=== PATIENT | male | born 1955 | race Caucasian/White ===

== ENCOUNTER → 2016-12-08 | Outpatient (CLI) | payer BC ==
[~2016-12-08] MED LIST: ASPEC325 PO; CLOP1TAB15 PO; METO50TA16 PO; SIMV80TA2 PO
[2016-12-08 09:45] LABS: ALT/SGPT 30 U/L (12-78); AST/SGOT 19 U/L (15-37); CHOLESTEROL 116 mg/dl (0-200); CHOLESTEROL/HDL RATIO 1.9; HDL CHOLESTEROL 60 mg/dl; TRIGLYCERIDES 49 mg/dl (0-150); VERY LOW DENSITY LIPOPROT CALC 10 mg/dl
== END | disposition home or self-care (01) ==
LOC: C.LAB1850 07:24
PROVIDERS: ATTEND Internal Medicine
DX: I25.10 Atherosclerotic heart disease of native coronary artery without angina pectoris (principal)

== ENCOUNTER → 2017-04-19 | Outpatient (CLI) | payer BC ==
[2017-04-19 18:49] LABS: ALT/SGPT 26 U/L (12-78); BLOOD UREA NITROGEN 14 mg/dl (7-18); BUN/CREATININE RATIO 15.8 (10-20); CALCIUM 8.2 mg/dl (8.5-10.1); CARBON DIOXIDE 28 mmol/L (21-32); CHLORIDE 98 mmol/L (98-107); GLUCOSE 94 mg/dl (70-99); POTASSIUM 4.1 mmol/L (3.5-5.1); SODIUM 134 mmol/L (136-145)
== END | disposition home or self-care (01) ==
LOC: C.LABMFLN 12:28
PROVIDERS: ATTEND Family Medicine
DX: R06.01 Orthopnea (principal); I25.10 Atherosclerotic heart disease of native coronary artery without angina pectoris

== ENCOUNTER → 2017-12-31 | Outpatient (CLI) | payer BC ==
[2017-12-31 12:28] LABS: HEMATOCRIT 41.6 % (42-52); HEMOGLOBIN 14.5 g/dL (14.0-18.0); MEAN CELL VOLUME 88.1 fL (80-100); MEAN CORPUSCULAR HEMOGLOBIN 30.7 pg (25-34); MEAN CORPUSCULAR HGB CONC 34.9 g/dl (32-36); MEAN PLATELET VOLUME 9.8 fL (7.4-10.4); PLATELET COUNT 268 K/uL (130-400); RED CELL DISTRIBUTION WIDTH SD 41.9 fL (36.4-46.3); WHITE BLOOD COUNT 10.08 K/uL (4.8-10.8)
[2017-12-31 13:10] LABS: ALT/SGPT 31 U/L (12-78); AST/SGOT 19 U/L (15-37); BLOOD UREA NITROGEN 16 mg/dl (7-18); CALCIUM 8.6 mg/dl (8.5-10.1); CARBON DIOXIDE 26 mmol/L (21-32); CREATININE 0.97 mg/dl (0.60-1.40); GLUCOSE 116 mg/dl (70-99); POTASSIUM 4.3 mmol/L (3.5-5.1); SODIUM 136 mmol/L (136-145)
== END | disposition home or self-care (01) ==
LOC: C.LABMFLN 08:46
PROVIDERS: ATTEND Internal Medicine Cardiovascular Disease
DX: I25.10 Atherosclerotic heart disease of native coronary artery without angina pectoris (principal); E78.5 Hyperlipidemia, unspecified; I35.0 Nonrheumatic aortic (valve) stenosis; I10 Essential (primary) hypertension

== ENCOUNTER 2024-05-03 10:35 | Observation (INO) ==
[2024-05-03 11:21] LABS: Basophils # (auto) 0.07 K/uL (0.00-0.20); Basophils % (auto) 1.2 %; Eosinophils # (auto) 0.24 K/uL (0.00-0.50); Eosinophils % (auto) 4.2 %; Hematocrit (blood only) 42.2 % (42.0-52.0); Hemoglobin 14.5 g/dl (14.0-18.0); Immature Granulocytes # (auto) 0.01 K/uL (0.01-0.20); Immature Granulocytes % (auto) 0.2 %; Lymphocytes # (auto) 1.64 K/uL (1.20-3.40); Lymphocytes % (auto) 28.5 %; Mean Corpuscular Hemoglobin 30.1 pg (25.0-34.0); Mean Corpuscular Hgb Conc 34.4 g/dL (32.0-36.0); Mean Corpuscular Volume 87.7 fL (80.0-100.0); Mean Platelet Volume 9.9 fL (9.4-12.4); Monocytes # (auto) 0.45 K/uL (0.11-0.59); Monocytes % (auto) 7.8 %; Neutrophils # (auto) 3.34 K/uL (1.40-6.50); Neutrophils % (auto) 58.1 %; Platelet Count 235 K/uL (130-400); RDW Coefficient of Variation 12.7 % (11.5-14.5); RDW Standard Deviation 41.1 fL (36.4-46.3); Red Blood Count 4.81 M/uL (4.70-6.10); White Blood Count 5.75 K/ul (4.8-10.8)
[2024-05-03 11:39] LABS: Albumin Globulin Ratio 1.8 (0.9-2); Albumin Level 4.4 gm/dl (3.4-5.0); BUN Creatinine Ratio 17.9 (10-20); Bilirubin,Total 0.5 mg/dl (0.2-1.0); Calcium 8.9 mg/dl (8.6-10.3); Creatinine Clr Calc Pharmacy 88.4 ml/min; Est GFR (African American) 103.5 ml/min; Est GFR (Non-African American) 89.3 ml/min; Globulin 2.5 gm/dl (2.5-4.0); Potassium 4.1 mmol/L (3.5-5.1); Total Protein 6.9 gm/dl (6.0-8.3)
[2024-05-03 11:45] LABS: Troponin I High Sensitivity 4.4 pg/ml (0-20)
--- NOTE | 2024-05-03 11:51 | XRay Report ---
XR chest 1V not portable CLINICAL HISTORY: Chest pain, nonspecific TECHNIQUE: Single frontal radiograph of the chest was obtained. Comparison: Comparison is made to chest radiograph 02/13/2022 FINDINGS: Median sternotomy wires are unchanged. Calcified aortic knob is seen. The lungs are clear. No evidenc e of pleural effusion or pneumothorax. IMPRESSION: No acute chest disease. ACT 112: Negative or not required by law. Electronically signed by: Adam Corona M.D. 05/03/2024 11:50 AM
[2024-05-03 11:53] LABS: INR 0.9 (0.9-1.1); Partial Thromboplastin Ratio 0.9; Partial Thromboplastin Time 23 Seconds (21-31); Prothrombin Time 9.7 Seconds (9.0-12.0)
--- NOTE | 2024-05-03 14:56 | Electrocardiogram Report ---
Test Reason : Blood Pressure : / mmHG Vent. Rate : 069 BPM Atrial Rate : 069 BPM P-R Int : 180 ms QRS Dur : 094 ms QT Int : 408 ms P-R-T Axes : 070 -74 -10 degrees QTc Int : 437 ms Normal sinus rhythm Left anterior fascicular block Abnormal ECG When compared with ECG of 14-MAY-2009 07:34, No significant change Confirmed by Ronnell Jauregui ([id number]) on 05/03/2024 2:56:33 PM Referred By: Confirmed By:Ronnell Jauregui
--- NOTE | 2024-05-03 15:30 | Emergency Department Note ---
Impression & Plan Chest pain ED Provider Note Diagnosis: Chest pain Disposition: Admit CHIEF COMPLAINT: HPI: Patient is a 68-year-old male presenting with complaint of chest pain. Patient states history of cardiac stents 12 to 14 years prior as well as aortic valve replacement 2 years prior. Patient states that he developed chest pain left anterior chest wall that was associated with diaphoresis blurred vision and weakness. Patient states that he has a dull sharp pain still present 2 out of 10 at that location. Patient states this feels similar to when he needed a cardiac stent previously. PAST MEDICAL HISTORY: See Below PAST SURGICAL HISTORY: See Below SOCIAL HISTORY: See Below HOME MEDICATIONS: See Below ALLERGIES: See Below VITALS: See Below PHYSICAL EXAMINATION: GENERAL: Well appearing, well nourished, NAD, non-toxic. EYE EXAM: Normal conjunctiva. OROPHARYNX: Moist mucus membranes. Grossly normal dentition. NECK: Supple, LUNGS: Clear to auscultation. Normal chest wall mechanics. HEART: NSR ABDOMEN: Abdomen soft, non-tender, normo-active bowel sounds, no masses, no rebound or guarding BACK: No CVA TTP. SKIN: No rashes and no bruising. UPPER EXTREMITIES: Upper extremities are grossly normal LOWER EXTREMITIES: Grossly normal, no edema. NEURO EXAM: A&O x3,, normal speech, moves all 4 extremities PSYCH: Cooperative MEDICAL DECISION MAKING: Reviewed external documents: History obtained from: Patient ER Course: Patient is a 68-year-old male presenting with complaint of chest pain. Patient's pain left anterior chest wall associated symptoms of diaphoresis blurred vision. Patient states this feels similar to when he had needed a cardiac stent previously. Patient states he still has mild 1-2 out of 10 sharp chest pain. Patient given aspirin. Patient's EKG without ischemic change. Patient's chest x-ray clear. Patient has elevated heart score above 4 due to risk factors and prior stenting. Patient be kept for observation with hospital service for chest pain rule out. Labs (independently interpreted) are significant for: First troponin negative Imaging results (independently interpreted): Chest x-ray clear EKG interpretation (independently interpreted): Normal sinus rhythm no ST segment elevation or depression Medications given: Aspirin Consultants: Hospitalist Medical decision rules: Chronic conditions affecting care: Triage Nursing notes reviewed and agree them. Vital Signs: reviewed and remarkable for: no significant abnormalities Past Med/Surg History Problem List (Updated 05/03/24 @ 18:06 by Jann Leos DO) Chest pain (Acute) Chest pain Dyspnea on exertion S/P aortic valve replacement with bioprosthetic valve Follow-up visit for aortic valve replacement with bioprosthetic valve Pulmonary nodule less than 1 cm in diameter with moderate to high risk for malignant neoplasm Severe aortic stenosis Ulnar neuropathy of both upper extremities Carpal tunnel syndrome, bilateral upper limbs S/P coronary artery stent placement stent 2009 placed [facility] Dr Francois Aortic stenosis (Acute) CAD in [place] artery (Acute) Carotid bruit (Acute) Chronic obstructive pulmonary disease (Acute) Dyslipidemia (Acute) Benign essential hypertension (Acute) Impaired fasting blood sugar (Acute) Medical History Aortic stenosis Benign essential hypertension CAD in [place] artery Carotid bruit Chronic obstructive pulmonary disease Dyslipidemia Impaired fasting blood sugar Surgical History H/O cardiac catheterization S/P coronary artery stent placement Family History Mother Alzheimer disease Heart disease Hypertension Father Cancer Heart disease Sister Heart disease Crohn's disease Brother Heart disease Grandfather (Paternal) Stroke Denies family history of Rheumatoid arthritis Sudden SIDS (sudden syndrome) Ovarian cancer Prostate cancer Diabetes Deep vein thrombosis Osteoporosis Coronary heart disease Dyslipidemia Cerebral aneurysm Bipolar disorder Clotting disorder Dementia Depression Kidney disease Myocardial infarction Osteoarthritis Breast cancer Schizophrenia Congenital kidney disease Gestational diabetes Lung cancer COPD (chronic obstructive pulmonary disease) Colorectal cancer Pulmonary embolism Lung disease Ulcerative colitis Colonic polyp Asthma Cystic kidney disease Social History Smoking Status: Current every day smoker Tobacco Type: Cigarettes Second Hand Exposure: No; Do You Dip or Chew Tobacco: No; Hx Alcohol Use: No Hx Substance Use: No Preferred Language: Uzbek Communication Ability: Effective Visual Impairment: No Limitations Hearing Ability: Normal Computer Forensic Specialist Required: No Beliefs That Will Affect Care: None marital status: Current Living Situation: Family current occupational status: employed 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, CONSTRUCTION Other Information That Helps Us Care for You: No Feels Safe at Home: Yes Safety Concerns: Feels Safe At This Time caffeine: Yes during the past year weight has: remained stable Dental Care, Regularly: No Physical Activity Frequency: Daily Physical Activity Frequency Comment: VERY ACTIVE Seatbelt Use: always Sunscreen Use: Yes Do you think of yourself as: straight/heterosexual Allergies Allergies Allergy/AdvReac Type Severity Reaction Status Date / Time No Known Allergies Allergy NONE Verified 05/03/24 15:50 Home Meds Home Medications Medication Instructions Recorded Confirmed acetaminophen 500 mg tablet 1,000 mg PO DIRECTED PRN Pain 01/07/22 05/03/24 (Tylenol Extra Strength) aspirin 81 mg tablet,delayed 81 mg PO QDD 05/03/24 05/03/24 release atorvastatin 80 mg tablet 80 mg PO QDD 05/03/24 05/03/24 clopidogrel 75 mg tablet 75 mg PO QDD 05/03/24 05/03/24 ezetimibe 10 mg tablet (Zetia) 10 mg PO QDD 05/03/24 05/03/24 fluticasone 250 mcg-salmeterol 50 1 inh inhalation BID 05/03/24 05/03/24 mcg/dose blistr powdr for inhalation (Advair Diskus) lisinopril 20 mg tablet 20 mg PO QDD 05/03/24 05/03/24 multivit with min-folic 1 tab PO QDD 05/03/24 05/03/24 acid-lutein 400 mcg-250 mcg chewable tablet (Centrum Silver) pyridoxine (vitamin B6) 100 mg 100 mg PO QDD 05/03/24 05/03/24 tablet Previous Rx's Medication Instructions Recorded nitroglycerin 0.4 mg sublingual 0.4 mg sublingual Q5M PRN chest 10/31/21 tablet pain #25 tabs albuterol sulfate 90 mcg/actuation 2 inh inhalation Q6H PRN shortness 04/23/22 breath activated powder inhaler of breath #1 ea Results & Data (ED) Vital Signs Vital Signs - 24 hr 05/03/24 10:46 05/03/24 15:45 05/03/24 15:47 Temperature 36.6 C Temperature Source Oral Pulse Rate 70 70 Pulse Rate [Apical] 60 Pulse Rhythm Regular Pulse Rhythm [Apical] Regular Respiratory Rate 18 18 18 Respiratory Effort / Characteristics Non-Labored Non-Labored Respiratory Depth Normal Normal Respiratory Pattern Regular Regular Blood Pressure 163/87 H Blood Pressure [Right Arm] 164/107 H Blood Pressure Mean 112 Blood Pressure Mean [Right Arm] 126 Pulse Oximetry 96 99 99 Oxygen Delivery Method Room Air Room Air Room Air Sepsis Recent Fever Within 48 Hours No Sepsis New/Unexplained Change in Mental Status N/A Sepsis Action Taken by Nursing No Action Required Laboratory Data 05/03/24 11:04 05/03/24 11:04 Lab Results 05/03/24 Range/Units 11:04 WBC 5.75 (4.8-10.8) K/ul RBC 4.81 (4.70-6.10) M/uL Hgb 14.5 (14.0-18.0) g/dl Hct 42.2 (42.0-52.0) % MCV 87.7 (80.0-100.0) fL MCH 30.1 (25.0-34.0) pg MCHC 34.4 (32.0-36.0) g/dL RDW Std Deviation 41.1 (36.4-46.3) fL RDW Coeff of Nadia 12.7 (11.5-14.5) % Plt Count 235 (130-400) K/uL MPV 9.9 (9.4-12.4) fL Immature Gran % (Auto) 0.2 % Neut % (Auto) 58.1 % Lymph % (Auto) 28.5 % [place] % (Auto) 7.8 % Eos % (Auto) 4.2 % Baso % (Auto) 1.2 % Neut # (Auto) 3.34 (1.40-6.50) K/uL Lymph # (Auto) 1.64 (1.20-3.40) K/uL [place] # (Auto) 0.45 (0.11-0.59) K/uL Eos # (Auto) 0.24 (0.00-0.50) K/uL Baso # (Auto) 0.07 (0.00-0.20) K/uL Immature Gran # (Auto) 0.01 (0.01-0.20) K/uL PT 9.7 (9.0-12.0) Seconds INR 0.9 (0.9-1.1) APTT 23 (21-31) Seconds PTT Ratio 0.9 Sodium 138 (136-145) mmol/L Potassium 4.1 (3.5-5.1) mmol/L Chloride 106 (98-107) mmol/L Carbon Dioxide 28 (21-32) mmol/L Anion Gap 4 (3-11) BUN 15 (6-23) mg/dl Creatinine 0.84 (0.6-1.4) mg/dl Est Cr Clr Drug Dosing 88.4 ml/min Est GFR ( Amer) 103.5 ml/min Est GFR (Non-Af Amer) 89.3 ml/min BUN/Creatinine Ratio 17.9 (10-20) Glucose 98 (70-99(Fasting)) mg/dl Calcium 8.9 (8.6-10.3) mg/dl Total Bilirubin 0.5 (0.2-1.0) mg/dl AST 28 (13-39) U/L ALT 27 (7-52) U/L Alkaline Phosphatase 81 (34-104) U/L Troponin I High Sens 4.4 (0-20) pg/ml Total Protein 6.9 (6.0-8.3) gm/dl Albumin 4.4 (3.4-5.0) gm/dl Globulin 2.5 (2.5-4.0) gm/dl Albumin/Globulin Ratio 1.8 (0.9-2) Administered Medications Discontinued Medications Aspirin (Aspirin 81 Mg Chew) 324 mg PO NOW STA Stop: 05/03/24 15:29 Last Admin: 05/03/24 15:35 Dose: 324 mg Documented By: MILAN Famotidine (Famotidine 20 Mg Tab) 20 mg PO NOW ONE Stop: 05/03/24 16:07 Last Admin: 05/03/24 16:49 Dose: 20 mg Documented By: SUKUMAR Imaging Data Radiologist's Impression: Chest X-Ray 05/03/24 10:50 XR chest 1V not portable CLINICAL HISTORY: Chest pain, nonspecific TECHNIQUE: Single frontal radiograph of the chest was obtained. Comparison: Comparison is made to chest radiograph 02/13/2022 FINDINGS: Median sternotomy wires are unchanged. Calcified aortic knob is seen. The lungs are clear. No evidence of pleural effusion or pneumothorax. IMPRESSION: No acute chest disease. ACT 112: Negative or not required by law. Electronically signed by: Adam Corona M.D. 05/03/2024 11:50 AM Discharge Plan Visit Data Chief Complaint: Chest Pain Stated Complaint: BLURRED VISION, CHEST PAIN, WEAKNESS ED Provider: Jann Leos Discharge Problem: Chest pain Patient Disposition: Admitted As Inpatient Discharge Instructions Interventions: ED Discharge Assessment Last Done: 05/03/24 16:56
[2024-05-03] MEDS: ASPIRIN 81 MG CHEW PO STA (15:35)
--- NOTE | 2024-05-03 15:52 | History & Physical Report ---
Date of Service May 03, 2024 Assessment & Plan (1) Chest pain: Plan: Admit to med telemetry Currently stable, asymptomatic, and nontoxic-appearing Presented to the [facility] ED today after experiencing approximately 45 minutes of left lower chest/epigastric pain radiating to the left chest, exacerbated with deep inspiration, and associated with nausea, diaphoresis, and weakness Symptoms have not returned since arrival to the ED Patient confirms the symptoms were very similar to symptoms he experienced prior to needing JOSE C to the L[place] [address] Francois Cardiac workup thus far including EKG into high sensitivity troponin levels have been unremarkable Pain is not reproducible on palpation Patient was given 324 mg aspirin in the ED Chest x-ray was negative for acute findings We will obtain a D-dimer level due to his pain being exacerbated with deep inspiration, if elevated will obtain CT of the chest with con to monitor for PE Continue to monitor on telemetry, will continue to monitor high-sensitivity troponin levels every 6 hours overnight Will continue home aspirin, Plavix, statin Cardiology consult has been placed, we will make him n.p.o. at midnight in case of heart cath tomorrow Will give 20 mg p.o. famotidine now to see if this improves symptoms SQ Lovenox for DVT prophylaxis Heart healthy diet until midnight then n.p.o. AM CBC, CMP, mag, PT/INR (2) S/P coronary artery stent placement: Plan: Continue aspirin, Plavix, and statin (3) Chronic obstructive pulmonary disease: Plan: Currently stable on room air and in no respiratory distress Start incentive spirometry We will try to avoid use of albuterol for now in case his symptoms are cardiac in nature as this could exacerbate his condition As needed O2 to keep SpO2 between 89 and 92% As needed nicotine gum has been ordered (4) Benign essential hypertension: Plan: Currently stable Continue home lisinopril Plan The patient was seen with and discussed with Dr. Miguel at the time of the admission History of Present Illness Chief Complaint: Chest pain/epigastric pain, diaphoresis, weakness Primary Care Provider: DONTE PCP Johny is a 68-year-old male with a past medical history significant for coronary artery disease status post PCI with JOSE C placement to the mid LAD in 2008, severe aortic stenosis status post bioprosthetic aortic valve placement at [facility] in 2021, COPD, dyspnea on exertion, and GERD who presented to the [facility] ED on 05/03/2024 after experiencing acute onset of epigastric/lower left-sided chest pain, weakness, blurred/tunnel vision, and shortness of breath which started approximately 30 minutes prior to his arrival to the ED. He was noted to be hypertensive in the ED at 163/87 but otherwise stable. Labs including CBC, CMP, INR, and 2 high-sensitivity troponin levels were unremarkable. EKG showed normal sinus rhythm with known left anterior fascicular block without acute ST segment or T wave changes. Chest x- ray was read as negative for acute findings. The patient was given 324 mg aspirin in the ED. Patient was sitting in bed in no acute distress at the time of the exam. States he had been in his normal state of health and feeling well. He was sitting at his desk earlier this afternoon doing paperwork when he had acute onset of epigastric/lower left chest pain with radiation down the left ribs. He had associated nausea, diaphoresis, weakness/lightheadedness during this time which lasted approximately 45 minutes. He did not take any medications after symptoms started as he did not have his nitroglycerin with him. When asked, he confirms that the symptoms are similar to when he required JOSE C placement 2008. Denies recurrent symptoms since arrival to the ED. Does note that when he was experiencing the pain it was exacerbated with deep inspiration. Denies recent fever, chills, shortness of breath, cough, hemoptysis, vomiting, diarrhea, melena, bloody bowel movements, lower extremity swelling, recent long travel, recent surgery or lower extremity trauma. He confirms he is still taking all cardiac medications including aspirin, Plavix, statin, and lisinopril as prescribed. Confirms he is no longer smoking and uses alcohol sparingly during social situations. We discussed CODE STATUS, he has a living will and power of deputy commonwealth's attorney, he is a DNR/DNI and his daughter is his POA. Please refer to Dr. Miguel's attestation for any changes to the treatment plan Allergies Allergy/AdvReac Type Severity Reaction Status Date / Time No Known Allergies Allergy NONE Verified 05/03/24 15:50 Home Medications Medication Instructions Recorded Confirmed Type nitroglycerin 0.4 mg sublingual 0.4 mg sublingual Q5M PRN chest 10/31/21 05/03/24 Rx tablet pain #25 tabs acetaminophen 500 mg tablet 1,000 mg PO DIRECTED PRN Pain 01/07/22 05/03/24 History (Tylenol Extra Strength) albuterol sulfate 90 mcg/actuation 2 inh inhalation Q6H PRN shortness 04/23/22 05/03/24 Rx breath activated powder inhaler of breath #1 ea aspirin 81 mg tablet,delayed 81 mg PO QDD 05/03/24 05/03/24 History release atorvastatin 80 mg tablet 80 mg PO QDD 05/03/24 05/03/24 History clopidogrel 75 mg tablet 75 mg PO QDD 05/03/24 05/03/24 History ezetimibe 10 mg tablet (Zetia) 10 mg PO QDD 05/03/24 05/03/24 History fluticasone 250 mcg-salmeterol 50 1 inh inhalation BID 05/03/24 05/03/24 History mcg/dose blistr powdr for inhalation (Advair Diskus) lisinopril 20 mg tablet 20 mg PO QDD 05/03/24 05/03/24 History multivit with min-folic 1 tab PO QDD 05/03/24 05/03/24 History acid-lutein 400 mcg-250 mcg chewable tablet (Centrum Silver) pyridoxine (vitamin B6) 100 mg 100 mg PO QDD 05/03/24 05/03/24 History tablet Past Med/Surg History Problem List (Updated 05/03/24 @ 16:16 by Jann Montgomery PA-C) Chest pain Dyspnea on exertion S/P aortic valve replacement with bioprosthetic valve Follow-up visit for aortic valve replacement with bioprosthetic valve Pulmonary nodule less than 1 cm in diameter with moderate to high risk for malignant neoplasm Severe aortic stenosis Ulnar neuropathy of both upper extremities Carpal tunnel syndrome, bilateral upper limbs S/P coronary artery stent placement stent 2009 placed [facility] Dr Francois Aortic stenosis (Acute) CAD in [place] artery (Acute) Carotid bruit (Acute) Chronic obstructive pulmonary disease (Acute) Dyslipidemia (Acute) Benign essential hypertension (Acute) Impaired fasting blood sugar (Acute) Medical History Aortic stenosis Benign essential hypertension CAD in [place] artery Carotid bruit Chronic obstructive pulmonary disease Dyslipidemia Impaired fasting blood sugar Surgical History H/O cardiac catheterization S/P coronary artery stent placement Family History Mother Alzheimer disease Heart disease Hypertension Father Cancer Heart disease Sister Heart disease Crohn's disease Brother Heart disease Grandfather (Paternal) Stroke Denies family history of Rheumatoid arthritis Sudden SIDS (sudden syndrome) Ovarian cancer Prostate cancer Diabetes Deep vein thrombosis Osteoporosis Coronary heart disease Dyslipidemia Cerebral aneurysm Bipolar disorder Clotting disorder Dementia Depression Kidney disease Myocardial infarction Osteoarthritis Breast cancer Schizophrenia Congenital kidney disease Gestational diabetes Lung cancer COPD (chronic obstructive pulmonary disease) Colorectal cancer Pulmonary embolism Lung disease Ulcerative colitis Colonic polyp Asthma Cystic kidney disease Social History Smoking Status: Never smoker Second Hand Exposure: No; Do You Dip or Chew Tobacco: No; Hx Alcohol Use: Yes Alcohol type: hard liquor Alcohol Intake Frequency Comment: WEEKENDS Hx Substance Use: No Preferred Language: Brazilian Visual Impairment: No Limitations Hearing Ability: Normal Welding Machine Operator Gas Metal Arc Required: No Beliefs That Will Affect Care: None marital status: Current Living Situation: Spouse current occupational status: employed 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, CONSTRUCTION Feels Safe at Home: Yes caffeine: Yes during the past year weight has: remained stable Dental Care, Regularly: No Physical Activity Frequency: Daily Physical Activity Frequency Comment: VERY ACTIVE Seatbelt Use: always Sunscreen Use: Yes Do you think of yourself as: straight/heterosexual Physical Exam Physical Exam: Physical Exam: General: In no acute distress, stated age, well-nourished, good hygiene HEENT: Normocephalic, atraumatic, no scleral icterus, pupils around round, symmetrical, and reactive to light, moist mucus membranes, trachea midline, no thyromegaly Chest/Pulm: No respiratory distress, symmetrical chest expansion, scattered expiratory wheezing Cardiac: RRR, click noted from previous aortic valve replacement Abdomen: Negative for ascites and bruising, normoactive bowel sounds, soft, non-tender to palpation throughout Musculoskeletal: Symmetrical and without signs of acute trauma, upper and lower extremities with full ROM, no atrophy, spasticity, or flaccidity Extremities: Radial, dorsalis pedis, and posterior tibial pulses are intact and symmetrical, no edema noted in the BL LE's Skin: Warm, dry, no rashes , lesions, or scars noted Neuro: Alert and oriented to person, place, month, year, and president, no focal defects, no tremors noted Psych: No acute distress, calm and cooperative during the exam Results & Data Results & Data Vital Signs (Past 12 Hours) Vital Signs Temp Pulse Pulse Resp BP BP Pulse Ox 05/03/24 15:47 70 18 99 05/03/24 15:45 60 18 164/107 H 99 05/03/24 10:46 36.6 C 70 18 163/87 H 96 O2 Del Method 05/03/24 15:47 Room Air 05/03/24 15:45 Room Air 05/03/24 10:46 Room Air Laboratory Results Laboratory Results - last 24 hr 05/03/24 05/03/24 11:04 Unknown WBC 5.75 RBC 4.81 Hgb 14.5 Hct 42.2 MCV 87.7 MCH 30.1 MCHC 34.4 RDW Std Deviation 41.1 RDW Coeff of Nadia 12.7 Plt Count 235 MPV 9.9 Immature Gran % (Auto) 0.2 Neut % (Auto) 58.1 Lymph % (Auto) 28.5 [place] % (Auto) 7.8 Eos % (Auto) 4.2 Baso % (Auto) 1.2 Neut # (Auto) 3.34 Lymph # (Auto) 1.64 [place] # (Auto) 0.45 Eos # (Auto) 0.24 Baso # (Auto) 0.07 Immature Gran # (Auto) 0.01 PT 9.7 INR 0.9 APTT 23 PTT Ratio 0.9 Sodium 138 Potassium 4.1 Chloride 106 Carbon Dioxide 28 Anion Gap 4 BUN 15 Creatinine 0.84 Est Cr Clr Drug Dosing 88.4 Est GFR ( Amer) 103.5 Est GFR (Non-Af Amer) 89.3 BUN/Creatinine Ratio 17.9 Glucose 98 Calcium 8.9 Total Bilirubin 0.5 AST 28 ALT 27 Alkaline Phosphatase 81 Troponin I High Sens 4.4 4.5 Total Protein 6.9 Albumin 4.4 Globulin 2.5 Albumin/Globulin Ratio 1.8 Diagnostic Findings Chest X-Ray 05/03/24 10:50 XR chest 1V not portable CLINICAL HISTORY: Chest pain, nonspecific TECHNIQUE: Single frontal radiograph of the chest was obtained. Comparison: Comparison is made to chest radiograph 02/13/2022 FINDINGS: Median sternotomy wires are unchanged. Calcified aortic knob is seen. The lungs are clear. No evidence of pleural effusion or pneumothorax. IMPRESSION: No acute chest disease. ACT 112: Negative or not required by law. Electronically signed by: Adam Corona M.D. 05/03/2024 11:50 AM ECG Additional Comments: Normal sinus rhythm Left anterior fascicular block Abnormal ECG When compared with ECG of 14-MAY-2009 07:34, No significant change Confirmed by Ronnell Jauregui ([id number]) on 05/03/2024 2:56:33 PM Code Status & VTE Plan Code Status DNR/DNI VTE Prophylaxis Plan VTE Prophylaxis will be ordered: Yes Supervising Physician Co-Signing Physician Notes Patient was seen and examined, agree with above assessment and plan Patient with bioprosthetic valve replacement in 2021, CAD, h/o stents on ASA, Plavix presents with acute onset chest pain, no EKG changes, negative trop vital are stable head atraumatic neck supple chest CTA b/l heart S1S2 regular abdomen soft, nt, nd, BS present extremities no clubbing, no cyanosis will monitor on tele consult cardiology NPO after midnight for possible stress test PG Care Time/CCT Total # of Minutes Spent Total Time Spent with Patient: Total time spent is greater than 50% in coordination of care (as documented) at patient's floor/unit and/or counseling patient: Coding [place] [address] INT INP/OBS CARE 2/55MIN Patient Type Established Medical Decision Making Moderate Complexity Diagnoses Chest pain R07.9 S/P coronary artery stent placement Z95.5 Chronic obstructive pulmonary disease J44.9 Benign essential hypertension I10
[2024-05-03] MEDS ORDERED: ACETAMINOPHEN 325 MG TAB PO PRN (16:09)
[2024-05-03] MEDS ORDERED: NICOTINE POLACRILEX 2 MG GUM MT PRN (16:16)
[2024-05-03] MEDS: FAMOTIDINE 20 MG TAB PO ONE (16:49)
[2024-05-03 17:48] LABS: D Dimer 670 ug/L FEU (0-500)
[2024-05-03] MEDS: OPTIRAY 320 125ml IV ONE (18:17)
[2024-05-03] MEDS: ATORVASTATIN 40 MG TAB PO SCH (18:32)
[2024-05-03] MEDS: EZETIMIBE 10 MG TAB PO SCH (18:32)
[2024-05-03] MEDS: CLOPIDOGREL BISULFATE 75 MG TAB PO SCH (18:32)
[2024-05-03] MEDS: ASPIRIN 81 MG ECTAB PO SCH (18:32)
--- NOTE | 2024-05-03 18:32 | CT Scan Report ---
CT ANGIOGRAM OF THE CHEST CLINICAL HISTORY: Atypical chest pain COMPARISON STUDY: Chest x-ray dated 05/03/2024. Chest CT dated 05/06/2009. TECHNIQUE: Following the IV administration of 118 cc of Optiray 320, CT angiogram of the chest was pe rformed from the upper abdomen to the thoracic inlet utilizing the pulmonary embolus protocol. Images are reviewed in the axial, sagittal, and coronal planes. 3-D MIPS images are created and assessed. I V contrast was administered without complication. A dose lowering technique was utilized adhering to the principles of ALARA. CT DOSE: 984.23 mGy.cm FINDINGS: Thyroid: Imaged portions of the thyroid gland are normal in size and attenuation. Thoracic aorta: There is atherosclerotic calcification of the thoracic aorta, which is normal in lauro jason and demonstrates standard 3-vessel arch anatomy. No dissection is seen. Pulmonary vasculature: The pulmonary trunk is normal in caliber. There are no filling defects identif ied in main, lobar, or segmental pulmonary branches to suggest pulmonary embolus. Heart: The patient is status post midline sternotomy and aortic valve surgery. Pericardial leads are noted. The heart is normal in size and without pericardial effusion. The coronary arteries are densel y calcified. Lungs and pleural spaces: Evaluation of the lung parenchyma is degraded by motion artifact. There is moderate emphysematous change. No airspace consolidation is seen typical for pneumonia and no pleural effusion is identified. Scarring/atelectasis is noted at the lung bases. The trachea and central air ways are clear. Calcified pleural plaque is seen in the right lower lung. This has progressed from pr evious. A 7 mm calcified nodule in the right lower lobe on image #83 has been present dating back to 2008, as has an 11 mm focus of pleural-based nodularity along left major fissure seen on image #117. These are of doubtful significance. There are numerous small calcified granulomas. Mediastinum: There are calcified mediastinal nodes. No lymphadenopathy is seen. Anitha: Clear. Axillae: There is no axillary lymphadenopathy. Upper abdomen: There is a small hiatal hernia. Partially visualized upper abdominal viscera is within normal limits. Skeletal structures: The skeletal structures are osteopenic. Arthritic change is noted in the shoulde rs. No lytic or blastic bony lesions are seen. IMPRESSION: 1. There is no evidence of pulmonary embolus in the main, lobar, or segmental pulmonary arteries. 2. Moderate emphysema. 3. There is no airspace consolidation typical for pneumonia or pleural effusion. 4. Calcified pleural plaque at the right lung base has progressed from 2008 and suggests asbestos-rel ated pleural disease. 5. Advanced coronary artery atherosclerosis. 6. Additional findings as above. ACT 112: Negative or not required by law. Electronically signed by: Carlos Manuel Johnson M.D. 05/03/2024 6:30 PM
--- OUTSIDE RECORDS SUMMARY | 2024-05-03 19:58 | External Medical Summary | Summary of Care ---
Author Name Unknown Organization [facility] Address [address] [place] [address] Phone [phone] Care Team Providers Care Brood Station Manager Name Role Phone Bart Schmid MD Primary Care Provider [phone] Reason for Visit * Reason Comments Cough Encounter Details Date Type Department Care Team (Latest Contact Info) Description 12/18/2023 6:10 PM EST [facility] [address] [place] [id number] Tashia Scott PA-C [address] [place] [address] Acute bronchitis, unspecified organism* Allergies No known active allergiesdocumented as of this encounter (statuses as of 12/18/2023) Medications Medication Sig Dispensed Refills Start Date End Date Status PLAVIX 75 MG PO TABS 1 TAB DAILY 0 Act [place] ASPIRIN EC 81 MG PO TBEC Take one pill daily 100 Tab 3 01/29/2011 Active GLUCOSAMINE CHONDROITIN COMPLX PO CAPS one daily 30 Cap 0 01/29/2011 Active CENTRUM SILVER PO TABS 1 TABLET DAILY 30 Tab 0 01/29/2011 Active SIMVASTATIN 80 MG PO TABS one tablet daily 0 Active PROAIR HFA 108 (90 BASE) MCG/ACT IN AERSIndications:Baldo paul, complicated Use two puffs every four hours as needed for wheezing 1 Inhaler 1 08/10/2013 Active ADVAIR DISKUS 250-50 MCG/DOSE inhaler Inhale 1 Puff by mouth in the morning and 1 Puff before bedtime. 5 04/19/2017 Active atorvaSTATin (LIPITOR) 80 MG Tablet 0 04/19/2017 Active naproxen (NAPROSYN) 500 MG Tablet Take 500 mg by mouth 2 times a day. With food. 1 09/06/2017 Active pyridOXINE (VITAMIN B-6) 100 MG Tablet Take 1 Tablet by mouth in the morning and 1 Tablet before bedtime. 2 09/12/2018 Active Baclofen 10 MG Oral Tablet (Lioresal) Take 1 Tablet by mouth 2 times a day as needed for Muscle spasms. 20 Tablet 0 08/05/2023 Active predniSONE 20 MG Oral Tablet (Deltasone) Take 2 Tablets by mouth in the morning for 5 days. 10 Tablet 0 12/18/2023 12/23/2023 Active documented as of this encounter (statuses as of 12/18/2023) Active Problems Problem Noted Date Diagnosed Date Dyslipidemia, goal LDL below 70 08/10/2013 Impaired fasting blood sugar 08/10/2013 Tobacco use disorder 01/29/2011 Coronary atherosclerosis of [place] coronary yeni ry 01/29/2011 Overview: Stent placed April 2009; sees [facility] banquet steward in [place] q. 6 months documented as of this encounter (statuses as of 12/18/2023) Immunizations Name Administration Dates Next Due Pneumococcal Polysaccharide PPV23 (Pneumovax) 12/12/2009(Deferred: Patient Refused) TD - Tetanus/Diptheria (ADULT) 09/04/2003 documented as of this encounter Social History Tobacco Use Types Packs/Day Years Used Date Smoking Tobacco: Every Day Cigarettes 1 40 Last attempted to quit: 04/23/2017 Cigars Smokeless Tobacco: Never Tobacco Cessation:Ready to Q uit: Not Asked; Counseling Given: Not Answered Comments:started @ 17 yo Alcohol Use Standard Drinks/Week Comments Yes 0 (1 standard drink = 0.6 oz pure alcohol) As of 2, the last noted alcohol intake was 6 ounces. 6 pack per week Sex and Gender Information Value Date Recorded Sex Assigned at Not on file Gender Identity Not on file Sexual Orientation Not on file Job Start Date Occupation Industry Not on file Not on file Not on file documented as of this encounter Last Filed Vital Signs Vital Sign Reading Time Taken Comments Blood Pressure 142/68 12/18/2023 4:22 PM EST Pulse 73 12/18/2023 4:22 PM EST Temperature 36.8 C (98.2 F) 12/18/2023 4:22 PM ES T Respiratory Rate 18 12/18/2023 4:22 PM EST Oxygen Saturation 96% 12/18/2023 4:22 PM EST Inhaled Oxygen Concentration - - Weight 89.3 kg (196 lb 12.8 oz) 12/18/2023 4:22 PM EST Height - - Body Mass Index 27.45 09/21/2023 12:46 PM EST documented in this encounter Patient Instructions * Patient Instructions* Tashia Scott PA-C - 12/18/2023 4:51 PM EST Acute Bronchitis What is acute bronchitis? Bronchitis is swelling and irritation in the air passages that connect the windpipe with the lungs.With acute bronchitis you usually have a cough that produces phlegm, and pain behind the breastbonewhen you breathe deeply or cough. How does it occur? Bronchitis often occurs with viral infections of the respiratory tract, such as colds and flu. Bronchitis may also be caused by bacterial infections. It may occur with childhood illnesses such as measles and whooping cough. Attacks are most frequent during the winter or when the level of air pollution is high. Infants, young children, the elderly, smokers, and people with lung or heart disease are most likely to get acute bronchitis. What are the symptoms? Symptoms may include: a deep cough that produces yellowish or greenish phlegm pain behind the breastbone when you breathe deeply or cough wheezing feeling short of breath fever chills headache sore muscles. How is it diagnosed? Your health care provider will examine you and ask about your symptoms. You may have tests, such as: a test of phlegm to look for bacteria chest x-ray blood tests. How is it treated? Acute bronchitis often does not require medical treatment. Resting at home and drinking plenty of fluids to keep the mucus loose may be all you need to do to get better in a few days. If your symptoms are severe or you have other health problems (such as heart or lung disease or diabetes), you may need to take antibiotics. How long will the effects last? Most of the time acute bronchitis clears up in a few days. Your cough may slowly get better in 1 to2 weeks. It may take you longer to recover if: You are a smoker. You live in an area where air pollution is a problem. You have a heart or lung disease. You have any other continuing health problems. How can I take care of myself? You can help yourself by: following the full treatment your health care provider recommends using a vaporizer, humidifier, or steam from hot water to add moisture to the air drinking plenty of liquids taking cough medicine if recommended by your health care provider resting in bed taking aspirin or acetaminophen to reduce fever and relieve headache and muscle pain (no one 18 years of age and under should take aspirin because of the risk of Adry's syndrome) eating healthy meals. Call your health care provider if: You have trouble breathing. You have a fever over 101F (38.3C). You cough up blood. You don't begin to feel better in 3 days. You have any symptoms that concern you. How can I help prevent acute bronchitis? To reduce your risk of getting a respiratory infection: Do not smoke. Wash your hands often. Get regular exercise. Eat healthy foods. Developed by [employer]. Published by [employer]. Last modified: 2004-06-03 Last reviewed: 2004-06-03 This content is reviewed periodically and is subject to change as new health information becomes available. The information is intended to inform and educate and is not a replacement for medical evaluation, advice, diagnosis or treatment by a healthcare professional. Women's Health Advisor 2005.2 Index Women's Health Advisor 2005.2 Credits Copyright 2005 [employer] and/or one of its subsidiaries. All Rights Reserved. documented in this encounter Progress Notes * Tashia Scott PA-C - 12/18/2023 4:48 PM EST Subjective: Johny Uriostegui is a 68 year old male. Chief Complaint Patient presents with Cough HPI: 68 yo male former smoker presents c/o rhinorrhea, congestion, sore throat, cough x 4 days. He states today he started to feel wheezy and slightly SOB. No fever, chills, body aches, h/a, cp, abd pain, n/v/d. He is taking mucinex OTC. He is using his albuterol which is helping. PMH: Patient Active Problem List Diagnosis Code Tobacco use disorder F17.200 Coronary atherosclerosis of chipewwa coronary artery I25.10 Dyslipidemia, goal LDL below 70 E78.5 Impaired fasting blood sugar R73.01 Current Outpatient Medications Medication Sig Dispense Refill PLAVIX 75 MG PO TABS 1 TAB DAILY ASPIRIN EC 81 MG PO TBEC Take one pill daily 100 Tab 3 GLUCOSAMINE CHONDROITIN COMPLX PO CAPS one daily 30 Cap 0 CENTRUM SILVER PO TABS 1 TABLET DAILY 30 Tab 0 SIMVASTATIN 80 MG PO TABS one tablet daily PROAIR HFA 108 (90 BASE) MCG/ACT IN AERS Use two puffs every four hours as needed for wheezing 1 Inhaler 1 ADVAIR DISKUS 250-50 MCG/DOSE inhaler Inhale 1 Puff by mouth in the morning and 1 Puff before bedtime. 5 atorvaSTATin (LIPITOR) 80 MG Tablet pyridOXINE (VITAMIN B-6) 100 MG Tablet Take 1 Tablet by mouth in the morning and 1 Tablet before bedtime. 2 Baclofen 10 MG Oral Tablet (Lioresal) Take 1 Tablet by mouth 2 times a day as needed for Muscle spasms. 20 Tablet 0 naproxen (NAPROSYN) 500 MG Tablet Take 500 mg by mouth 2 times a day. With food. (Patient not taking: Reported on 12/18/2023) 1 No current facility-administered medications for this visit. No past medical history on file. Past Surgical History: Procedure Laterality Date REMOVE TONSILS & ADENOIDS, UNDER 12 REPLANTATION OF DIGIT, COMPLETE 1975, 1980 Reimplantation of right thumb x 2 due to trauma Review of patient's allergies indicates: No Known Allergies Family History Problem Relation Age of Onset Heart Disorder Mother from MS at 68 Neurological Disorder Mother Alzhiemers Cancer Father Cancer of the tongue Heart Disorder Father CAD started late 40's -early 50's No Past Hx Sister 2 sisters A&W No Past Hx Brother 2 brothers A&W Family Status Relation Status Mo (Not Specified) Fa (Not Specified) Sis (Not Specified) Bro (Not Specified) Social History Socioeconomic History Marital status: Spouse name: Silvia Number of children: 2 Years of education: 18 Highest education level: Not on file Occupational History 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 6 pack per week Drug use: No Sexual activity: Yes Comment: is only sexual partner Other Topics Concern Not on file Social History Narrative 05/07/2005 Household: Lives w/ and 2 children (22, 17) Social Determinants of Health Financial Resource Strain: Not on file Food Insecurity: Not on file Transportation Needs: Not on file Physical Activity: Not on file Stress: Not on file Social Connections: Not on file Intimate Partner Violence: Not on file Housing Stability: Not on file Review of Systems All other systems reviewed and are negative. Objective: BP 142/68 | Pulse 73 | Temp 36.8 C (98.2 F) (Tympanic) | Resp 18 | Wt 89.3 kg (196 lb 12.8 oz) | SpO2 96% | BMI 27.45 kg/m | BSA 2.11 m Physical Exam Vitals and nursing note reviewed. Constitutional: General: He is not in acute distress. Appearance: Normal appearance. HENT: Head: Normocephalic and atraumatic. Right Ear: Tympanic membrane, ear canal and external ear normal. Left Ear: Tympanic membrane, ear canal and external ear normal. Nose: Congestion and rhinorrhea present. Mouth/Throat: Mouth: Mucous membranes are moist. Pharynx: Posterior oropharyngeal erythema present. No oropharyngeal exudate. Eyes: Extraocular Movements: Extraocular movements intact. Conjunctiva/sclera: Conjunctivae normal. Pupils: Pupils are equal, round, and reactive to light. Cardiovascular: Rate and Rhythm: Normal rate. Heart sounds: Normal heart sounds. No murmur heard. No friction rub. No gallop. Pulmonary: Effort: Pulmonary effort is normal. No respiratory distress. Breath sounds: No stridor. Wheezing present. No rhonchi or rales. Abdominal: General: Abdomen is flat. Bowel sounds are normal. Palpations: Abdomen is soft. There is no hepatomegaly, splenomegaly or mass. Tenderness: There is no abdominal tenderness. Musculoskeletal: Cervical back: Neck supple. Skin: General: Skin is warm and dry. Findings: No rash. Neurological: General: No focal deficit present. Mental Status: He is alert and oriented to person, place, and time. ASSESSMENT: Acute bronchitis, unspecified organism (Primary) Other orders - predniSONE 20 MG Oral Tablet (Deltasone); Take 2 Tablets by mouth in the morning for 5 days. Refer to pt handout for further instructions. Tashia Scott PA-C documented in this encounter Nursing Notes * Binta Montilla MED ASSIST - 12/18/2023 4:19 PM EST Johny Uriostegui is a 68 year old male who presents to walk-in clinic today complaining of Chief Complaint Patient presents with Cough Pt c/o cough x 4 days. Tried musinex. Denies any other sx. Alone in exam room. documented in this encounter Plan of Treatment Health Maintenance Due Date Last Done Comments DISCUSS TOBACCO CESSATION (REFER TO SMARTSET #4978) 1954 COVID-19 Vaccine (#1) 03/14/1955 Pneumococcal Vaccine: 65+ Years (1 - PCV) 1960 Depression Screening 1966 Hepatitis C Screening 1972 Cologuard 1999 Colonoscopy 1999 Colorectal Cancer Screening 1999 Fecal Occult Blood Test 1999 Sigmoidoscopy 1999 DTaP,Tdap,and Td Vaccines (1 - Tdap) 09/05/2003 09/04/2003 LUNG CANCER SCREENING - USE SMARTSET 95062 2004 Zoster Vaccines (1 of 2) 2004 Influenza Vaccine (FLU shot) (#1) 2023 Diabetes Screening 09/21/2026 09/21/2023, 0 05/02/2014, 03/20/2013, Additional history exists AAA Screening Completed 08/05/2023 GARDASIL-HPV IMMUNIZATION SERIES Aged Out No longer eligible based on patient's age to complete this topic Hepatitis B Aged Out No longer eligi ble based on patient's age to complete this topic MENINGOCOCCAL (MENACTRA/MENVEO) Aged Out No longer eligible based on patient's age to complete this topic documented as of this encounter Medical Devices Not on filedocumented as of this encounter Visit Diagnoses Diagnosis Acute bronchitis, unspecified organism- Primary documented in this encounter Care Teams Brood Station Manager Relationship Specialty Start Date End Date Bart Schmid MD PCP - General Family Medicine 11/14/18 documented as of this encounter"
[2024-05-03] MEDS: ENOXAPARIN INJ 40 MG/0.4 ML SYR SQ SCH (20:34)
[2024-05-04 03:49] LABS: Albumin Globulin Ratio 1.7 (0.9-2); Albumin Level 3.5 gm/dl (3.4-5.0); BUN Creatinine Ratio 16.1 (10-20); Basophils # (auto) 0.07 K/uL (0.00-0.20); Basophils % (auto) 1.2 %; Bilirubin,Total 0.4 mg/dl (0.2-1.0); Calcium 8.2 mg/dl (8.6-10.3); Creatinine Clr Calc Pharmacy 85.3 ml/min; Eosinophils # (auto) 0.38 K/uL (0.00-0.50); Eosinophils % (auto) 6.4 %; Est GFR (African American) 102.1 ml/min; Est GFR (Non-African American) 88.1 ml/min; Globulin 2.1 gm/dl (2.5-4.0); Hematocrit (blood only) 38.3 % (42.0-52.0); Hemoglobin 13.3 g/dl (14.0-18.0); Immature Granulocytes # (auto) 0.01 K/uL (0.01-0.20); Immature Granulocytes % (auto) 0.2 %; Lymphocytes # (auto) 1.94 K/uL (1.20-3.40); Lymphocytes % (auto) 32.4 %; Mean Corpuscular Hemoglobin 30.4 pg (25.0-34.0); Mean Corpuscular Hgb Conc 34.7 g/dL (32.0-36.0); Mean Corpuscular Volume 87.4 fL (80.0-100.0); Mean Platelet Volume 10.1 fL (9.4-12.4); Monocytes # (auto) 0.56 K/uL (0.11-0.59); Monocytes % (auto) 9.4 %; Neutrophils # (auto) 3.02 K/uL (1.40-6.50); Neutrophils % (auto) 50.4 %; Platelet Count 189 K/uL (130-400); Potassium 4.2 mmol/L (3.5-5.1); RDW Coefficient of Variation 12.6 % (11.5-14.5); RDW Standard Deviation 40.2 fL (36.4-46.3); Red Blood Count 4.38 M/uL (4.70-6.10); Total Protein 5.6 gm/dl (6.0-8.3); White Blood Count 5.98 K/ul (4.8-10.8)
[2024-05-04 03:58] LABS: Prothrombin Time 10.7 Seconds (9.0-12.0)
[2024-05-04] MEDS: FLUTICASONE/VILANTEROL 100/25MCG 14 PUFFS/INHALER INH SCH (08:33)
--- NOTE | 2024-05-04 09:50 | Cardiology Consultation ---
Date of Consultation May 04, 2024 Assessment & Plan (1) Chest pain: (2) CAD (coronary artery disease): (3) S/P coronary artery stent placement: (4) S/P aortic valve replacement with bioprosthetic valve: Plan 68-year-old man with CAD status post open heart AVR bioprosthesis who had epigastric/lower chest discomfort at rest yesterday with negative evaluation for acute coronary syndrome, feels well today and anxious to return home. Given fairly recent cardiac catheterization showing only minimal disease (30 to 40% proximal LAD) and absence of evidence of acute coronary syndrome despite prolonged symptoms, suspect a noncardiac etiology such as esophageal spasms, gastritis, or musculoskeletal phenomenon. Nonetheless, recommended stress echocardiogram to further risk stratify and more definitively exclude myocardial ischemia, but he declines and will follow-up with the [facility] and obtain this as an outpatient if necessary. Hemodynamics favorable, no change in his antiplatelet/vasoactive outpatient regimen. As noted, he has regular follow-up with the [facility] and he will arrange this. History of Present Illness Reason for Consultation: chest pain simialar to previous JOSE C placement Requesting Physician: Susan Arechiga MD Attending Physician: Susan Arechiga MD History of Present Illness 68-year-old man with CAD (JOSE C LAD 2008, minimal disease on pre-AVR cath 2021), status post open heart bioprosthetic AVR 2021, who noted abrupt onset of epigastric lower left sided chest pain while seated at a computer, 4/10 intensity with associated dyspnea and blurry vision, prompting ER visit. He notes that he had similar symptoms prior to his STEMI in 2008, however this time his symptoms resolved after 45 minutes and he has felt well overnight. He denies any chest pain, dyspnea, or any other complaints currently. ER evaluation included normal ECG and chest CT, troponin x 4 has been flat and less than 7, overnight telemetry benign. As noted, he had no somatic complaints at the time my evaluation and he was quite anxious to return home. Allergies Allergy/AdvReac Type Severity Reaction Status Date / Time No Known Allergies Allergy NONE Verified 05/03/24 15:50 Home Medications Medication Instructions Recorded Confirmed Type nitroglycerin 0.4 mg sublingual 0.4 mg sublingual Q5M PRN chest 10/31/21 0 05/03/24 Rx tablet pain #25 tabs acetaminophen 500 mg tablet 1,000 mg PO DIRECTED PRN Pain 01/07/22 05/03/24 History (Tylenol Extra Strength) albuterol sulfate 90 mcg/actuation 2 inh inhalation Q6H PRN shortness 04/23/22 05/03/24 Rx breath activated powder inhaler of breath #1 ea aspirin 81 mg tablet,delayed 81 mg PO QDD 05/03/24 05/03/24 History release atorvastatin 80 mg tablet 80 mg PO QDD 05/03/24 05/03/24 History clopidogrel 75 mg tablet 75 mg PO QDD 05/03/24 05/03/24 History ezetimibe 10 mg tablet (Zetia) 10 mg PO QDD 05/03/24 05/03/24 History fluticasone 250 mcg-salmeterol 50 1 inh inhalation BID 05/03/24 05/03/24 History mcg/dose blistr powdr for inhalation (Advair Diskus) lisinopril 20 mg tablet 20 mg PO QDD 05/03/24 05/03/24 History multivit with min-folic 1 tab PO QDD 05/03/24 05/03/24 History acid-lutein 400 mcg-250 mcg chewable tablet (Centrum Silver) pyridoxine (vitamin B6) 100 mg 100 mg PO QDD 05/03/24 05/03/24 History tablet Patient History Medical History Severe aortic stenosis Surgical History S/P coronary artery stent placement stent [address] [facility] Dr Francois H/O cardiac catheterization Family History Mother Alzheimer disease Heart disease Hypertension Father Cancer Heart disease Sister Heart disease Crohn's disease Brother Heart disease Grandfather (Paternal) Stroke Denies family history of Rheumatoid arthritis Sudden SIDS (sudden syndrome) Ovarian cancer Prostate cancer Diabetes Deep vein thrombosis Osteoporosis Coronary heart disease Dyslipidemia Cerebral aneurysm Bipolar disorder Clotting disorder Dementia Depression Kidney disease Myocardial infarction Osteoarthritis Breast cancer Schizophrenia Congenital kidney disease Gestational diabetes Lung cancer COPD (chronic obstructive pulmonary disease) Colorectal cancer Pulmonary embolism Lung disease Ulcerative colitis Colonic polyp Asthma Cystic kidney disease Social History Smoking Status: Current every day smoker Tobacco Type: Cigarettes Second Hand Exposure: No; Do You Dip or Chew Tobacco: No; Hx Alcohol Use: No Hx Substance Use: No Preferred Language: Romanian Communication Ability: Effective Visual Impairment: No Limitations Hearing Ability: Normal Antenna Installer Required: No Beliefs That Will Affect Care: None marital status: Current Living Situation: Family current occupational status: employed current occupation: [employer] Feels Safe at Home: Yes caffeine: Yes during the past year weight has: remained stable Dental Care, Regularly: No Physical Activity Frequency: Daily Physical Activity Frequency Comment: VERY ACTIVE Seatbelt Use: always Sunscreen Use: Yes Do you think of yourself as: straight/heterosexual Physical Exam Physical Exam: Adult white male in no distress. Afebrile. Normotensive. Pulse 63 bpm and regular without ectopy. Respirations 18 unlabored. Skin: no ecchymoses or generalized lesions. HEENT: unremarkable. Neck: JVP at the clavicle at 90 degrees, no carotid bruits. Lungs: clear. Cardiac: regular rhythm, normal S1-2, no murmur. Abdomen: benign. Extremities: no edema, pulses intact. Neurologic: normal affect and conversation, nonfocal. Results & Data Laboratory Results Troponins as noted in HPI. Hemoglobin 13.3. Normal electrolytes, BUN 14, creatinine 0.87. Diagnostic Findings Chest x-ray unremarkable. Chest CT with moderate emphysema, otherwise unremarkable, no pulmonary embolism. Echocardiogram 2021 showed EF 55 to 60% with no wall motion abnormalities, mild LVH, appropriately functioning bioprosthetic aortic valve. PG Care Time/CCT Total # of Minutes Spent Total Time Spent with Patient: Total time spent is greater than 50% in coordination of care (as documented) at patient's floor/unit and/or counseling patient: Coding Level of Care Code 82454 IN/OBS CONSULT LVL 4,60M Diagnoses Chest pain R07.9 CAD (coronary artery disease) I25.10 S/P coronary artery stent placement Z95.5 S/P aortic valve replacement with bioprosthetic valve Z95.3
--- NOTE | 2024-05-04 11:24 | Discharge Summary ---
Date of Service May 04, 2024 Admission HPI Per Admitting Provider Johny is a 68-year-old male with a past medical history significant for coronary artery disease status post PCI with JOSE C placement to the mid LAD in 2008, severe aortic stenosis status post bioprosthetic aortic valve placement at [facility] in 2021, COPD, dyspnea on exertion, and GERD who presented to the [facility] ED on 05/03/2024 after experiencing acute onset of epigastric/lower left-sided chest pain, weakness, blurred/tunnel vision, and shortness of breath which started approximately 30 minutes prior to his arrival to the ED. He was noted to be hypertensive in the ED at 163/87 but otherwise stable. Labs including CBC, CMP, INR, and 2 high-sensitivity troponin levels were unremarkable. EKG showed normal sinus rhythm with known left anterior fascicular block without acute ST segment or T wave changes. Chest x- ray was read as negative for acute findings. The patient was given 324 mg aspirin in the ED. Patient was sitting in bed in no acute distress at the time of the exam. States he had been in his normal state of health and feeling well. He was sitting at his desk earlier this afternoon doing paperwork when he had acute onset of epigastric/lower left chest pain with radiation down the left ribs. He had associated nausea, diaphoresis, weakness/lightheadedness during this time which lasted approximately 45 minutes. He did not take any medications after sy mptoms started as he did not have his nitroglycerin with him. When asked, he confirms that the symptoms are similar to when he required JOSE C placement 2008. Denies recurrent symptoms since arrival to the ED. Does note that when he was experiencing the pain it was exacerbated with deep inspiration. Denies recent fever, chills, shortness of breath, cough, hemoptysis, vomiting, diarrhea, melena, bloody bowel movements, lower extremity swelling, recent long travel, recent surgery or lower extremity trauma. He confirms he is still taking all cardiac medications including aspirin, Plavix, statin, and lisinopril as prescribed. Confirms he is no longer smoking and uses alcohol sparingly during social situations. We discussed CODE STATUS, he has a living will and power of real estate attorney, he is a DNR/DNI and his daughter is his POA. Principal Diagnosis chest pain Discharge Exam The patient is awake, alert and oriented 3, well developed and well nourished, normocephalic and atraumatic, lying in bed and in no acute distress. HEENT--PERRL, EOMI, mucous membranes and oropharynx mildly dry Neck--supple. No JVD. No bruits. Thyroid normal, trachea midline, no adenopathy. Heart--normal S1 and S2. No murmurs, rubs or gallops. Lungs--clear bilaterally, no respiratory distress, no accessory muscle use. Abdomen--normal bowel sounds and soft. Extremities--no cyanosis or clubbing. No edema. Dermatologic--normal skin turgor, normal color, no abnormal lymph nodes, no rash. Neurologic--cranial nerves II through XII grossly intact. Rheumatologic--normal range of motion. Psychiatric--normal affect. Discharge Data Allergies Allergy/AdvReac Type Severity Reaction Status Date / Time No Known Allergies Allergy NONE Verified 05/03/24 15:50 Consultations 05/03/24 15:46 ED Decision to Admit Stat 05/03/24 16:09 Consult Cardiology Routine Ordered Studies 05/03/24 17:48 CT angio chest PE protocol Stat Hospital Course (1) Chest pain: Admit to med telemetry Currently stable, asymptomatic, and nontoxic-appearing Presented to the [facility] ED today after experiencing approximately 45 minutes of left lower chest/epigastric pain radiating to the left chest, exacerbated with deep inspiration, and associated with nausea, diaphoresis, and weakness Symptoms have not returned since arrival to the ED Patient confirms the symptoms were very similar to symptoms he experienced prior to needing JOSE C to the LAD [place] [address] Francois Cardiac workup thus far including EKG into high sensitivity troponin levels have been unremarkable Pain is not reproducible on palpation Patient was given 324 mg aspirin in the ED Chest x-ray was negative for acute findings Evaluated by cardiology and they offered him stress test however patient refused and said he would want to follow-up outpatient. He will be discharged today to follow-up with regular PCP and cardiology outpatient. (2) S/P coronary artery stent placement: Continue aspirin, Plavix, and statin (3) Chronic obstructive pulmonary disease: Currently stable on room air and in no respiratory distress Start incentive spirometry We will try to avoid use of albuterol for now in case his symptoms are cardiac in nature as this could exacerbate his condition As needed O2 to keep SpO2 between 89 and 92% As needed nicotine gum has been ordered (4) Benign essential hypertension: Currently stable Continue home lisinopril Plan Discharge home Total Time Total Time Spent Total Time Spent (In Minutes): 35 Discharge Plan Discharge Items Patient Disposition: Home - Self-Care Reason For Visit: CHEST PAIN Discharge Diagnosis: chest pain Activity: Resume your previous activity Non-emergency contact: Primary Care Provider and President And Ceo Call non-emergency contact if: you have any medication questions and your symptoms worsen Follow-up/Referrals: Tru Alvarenga PA-C [Physician [employer]] - (Pt declined appt, he will follow up through the [facility]) PCP,NO [Primary Care Provider] - Diet: Regular Addtl Attending Provider Instructions: please follow up with your optical lab technician as soon as possible Pending Studies at Discharge: No Stand-Alone Forms: My [employer], Smoking Cessation Medications and DC Order Prescriptions: Continued nitroglycerin 0.4 mg tablet, sublingual 0.4 mg SL Q5M PRN (Reason: chest pain) Qty: 25 3RF acetaminophen [Tylenol Extra Strength] 500 mg tablet 1,000 mg PO DIRECTED PRN (Reason: Pain) albuterol sulfate 90 mcg/actuation aerosol powdr breath activated 2 inh inhalation Q6H PRN (Reason: shortness of breath) Qty: 1 5RF fluticasone propion-salmeterol [Advair Diskus] 250-50 mcg/dose Blister With Device 1 inh INHALATION BID aspirin 81 mg Tablet,Delayed Release (Dr/Ec) 81 mg PO QDD ezetimibe [Zetia] 10 mg Tablet 10 mg PO QDD atorvastatin 80 mg tablet 80 mg PO QDD lisinopril 20 mg tablet 20 mg PO QDD clopidogrel 75 mg tablet 75 mg PO QDD pyridoxine (vitamin B6) 100 mg tablet 100 mg PO QDD Centrum Silver 400-250 mcg tablet,chewable 1 tab PO QDD Discharge Orders: Discharge Order (Routine); Ordered 05/04/24 Ordered By: Susan Arechiga Admission Data Admit Date/Time: 05/03/24 16:08 Attending Provider: Susan Arechiga Admit Provider: Mohini Miguel Primary Care Provider: PCP,NO Other Providers: Mohini Miguel; Ronnell Jauregui; [facility] Other Interventions: Discharge Summary Assessment (RN) Last Done: 05/04/24 09:46 Coding Level of Care Code 05076 INP/OBS DISCH >30 MIN Diagnoses Chest pain R07.9 S/P coronary artery stent placement Z95.5 Chronic obstructive pulmonary disease J44.9 Benign essential hypertension I10 Time Spent (min) 35
== END 2024-05-04 10:07 | disposition home or self-care (01) ==
LOC: ED 10:35 → EDINP 10:35 → SUATTDRO 16:08 → 2N 16:56 → 2S 05-04 06:43
DX: Z79.82 Long term (current) use of aspirin; H53.8 Other visual disturbances; J44.9 Chronic obstructive pulmonary disease, unspecified; F17.210 Nicotine dependence, cigarettes, uncomplicated; I10 Essential (primary) hypertension; R53.1 Weakness; Z95.5 Presence of coronary angioplasty implant and graft; Z95.2 Presence of prosthetic heart valve; R07.9 Chest pain, unspecified; R61 Generalized hyperhidrosis; Z79.51 Long term (current) use of inhaled steroids; K21.9 Gastro-esophageal reflux disease without esophagitis